=== PATIENT | female | born 2000 | race Hispanic/Latino ===

== ENCOUNTER 2021-11-27 17:27 | Emergency (ER) | payer MEDICAID ==
[2021-11-27 18:14] LABS: Bilirubin Neg (Negative); Blood, Urine Negative (Negative); Clarity Clear (Clear); Glucose, Urine (Dipstick) Normal (Negative); Ketone, Urine Negative (Negative); Leukocyte Negative (Negative); Nitrite Negative (Negative); Protein, Urine (Dipstick) Negative (Neg-Trace); Urobilinogen Normal mg/dL (Less than 2); pH, Urine 6.5 (5.0-9.0)
== END 2021-11-27 18:37 | disposition left against medical advice (07) ==
LOC: CSHERS 17:27
DX: Z53.21 Procedure and treatment not carried out due to patient leaving prior to being seen by health care provider (principal)
CPT/HCPCS: 81003

== ENCOUNTER 2021-12-01 18:05 | Emergency (ER) | payer MEDICAID, OTHER ==
[2021-12-01 18:45] LABS: #Basophils 0.1 10x3/uL (0.0-0.2); #Eosinphils 0.5 10x3/uL (0.0-0.5); #Monocytes 0.9 10x3/uL (0.0-1.1); #Neutrophils 3.6 10x3/uL (1.5-8.4); %Basophils 0.8 % (0.0-2.0); %Eosinophils 6.2 % (0.0-6.0); %Lymphocytes 33.7 % (18.0-47.0); %Monocytes 11.8 % (0.0-10.0); %Neutrophils 47.2 % (40.0-75.0); Hemoglobin 12.5 g/dL (12.0-15.5); Mean Corpuscular HGB CONC 33.1 g/dL (32.0-36.0); Mean Corpuscular Hemoglobin 30.6 pg (27.0-33.0); Mean Corpuscular Volume 92.4 fl (81.6-98.3); Mean Platelet Volume 12.2 fl (7.4-10.4); Platelet Count 172 10x3/uL (150-450); RBC Distribution Width 11.8 % (11.5-14.5); Red Blood Cell (RBC) Count 4.09 10x6/uL (3.90-5.03); White Blood Cell (WBC) Count 7.7 10x3/uL (3.5-10.5)
[2021-12-01 18:58] LABS: ALT (SGPT) 10 U/L (8-55); AST (SGOT) 17 U/L (5-34); Albumin 3.9 g/dL (3.5-5.0); Alkaline Phosphatase 75 U/L (40-100); Anion Gap 13 mmol/L (10-20); BUN (Urea Nitrogen) 9 mg/dL (7.0-18.7); Bilirubin, Total 0.3 mg/dL (0.2-1.2); Calc. Creatinine Clearance 0 mL/min (70-130); Carbon Dioxide 22 mmol/L (22-29); Chloride 107 mmol/L (98-107); Globulin 3.2 g/dL (2.4-3.5); Glucose 105 mg/dL (70-105); Potassium 3.9 mmol/L (3.5-5.1); Protein, Total 7.1 g/dL (6.0-8.3); Sodium 138 mmol/L (136-145)
== END 2021-12-01 20:39 | disposition home or self-care (01) ==
LOC: CSHERS 18:05
DX: O02.1 Missed abortion (principal)
CPT/HCPCS: 80053; 84702; 85025; 86900; 86901

== ENCOUNTER 2022-10-17 08:34 | Outpatient (CLI) | payer OTHER | END 2022-10-17 08:35 | disposition home or self-care (01) | LOC: CSHULT 08:34 | PROVIDERS: ATTEND Family Medicine | DX: Z34.81 Encounter for supervision of other normal pregnancy, first trimester (principal); Z3A.18 18 weeks gestation of pregnancy | CPT/HCPCS: 76805 ==

== ENCOUNTER 2023-03-05 16:44 | Inpatient (IN) | payer OTHER ==
[~2023-03-05 16:44] MED LIST: Bupivacaine/Epinephrine 0.25% 30 ML VIAL ONE; ePHEDrine Sulfate 50 MG/10 ML VIAL ONE
[2023-03-05] MEDS: Lactated Ringer's 1,000 ML IV SCH (17:21)
[2023-03-05 17:35] VITALS: BMI 32.2
[2023-03-05] MEDS ORDERED: Fentanyl 100 MCG/2 ML VIAL SLOW IVP PRN (17:50)
[2023-03-05] MEDS ORDERED: Ibuprofen 800 MG TAB PO PRN (17:50)
[2023-03-05] MEDS ORDERED: Diphenoxylate HCl/Atropine Tablet PO PRN (17:50)
[2023-03-05] MEDS ORDERED: Lidocaine 1% (PF) 30 ML VIAL SC PRN (17:50)
[2023-03-05] MEDS ORDERED: Acetaminophen 500 MG TAB PO PRN (17:50)
[2023-03-05] MEDS ORDERED: hydrALAZINE 20 MG/ML VIAL SLOW IVP PRN (17:50)
[2023-03-05] MEDS ORDERED: Promethazine HCl 25 MG/ML VIAL IM PRN (17:50)
[2023-03-05] MEDS ORDERED: Ondansetron PF 4 MG/2 ML Vial IVP PRN (17:50)
[2023-03-05] MEDS ORDERED: Misoprostol 200 MCG TAB PR PRN (17:50)
[2023-03-05] MEDS ORDERED: Tranexamic Acid 1,000 MG/10 ML VIAL IVP PRN (17:50)
[2023-03-05] MEDS ORDERED: HYDROcodone/Acetaminophen 5/325 mg Tablet PO PRN (17:50)
[2023-03-05] MEDS ORDERED: Carboprost 250 MCG/ML AMP IM PRN (17:50)
[2023-03-05] MEDS ORDERED: Butorphanol Tartrate 1 MG/ML VIAL SLOW IVP PRN (17:50)
[2023-03-05] MEDS ORDERED: Penicillin G Potassium 5 MILL.UNITS in Sodium Chloride 0.9% 100 ML IVPB SCH (18:00)
[2023-03-05] MEDS ORDERED: NS w/ Oxytocin 30 units 500 ML IV SCH ×3 (18:00)
[2023-03-05 18:05] LABS: Hemoglobin 11.4 g/dL (12.0-15.5); Mean Corpuscular HGB CONC 32.7 g/dL (32.0-36.0); Mean Corpuscular Hemoglobin 30.1 pg (27.0-33.0); Mean Corpuscular Volume 92.1 fl (81.6-98.3); Mean Platelet Volume 13.4 fl (7.4-10.4); Platelet Count 138 10x3/uL (150-450); RBC Distribution Width 13.9 % (11.5-14.5); Red Blood Cell (RBC) Count 3.79 10x6/uL (3.90-5.03); White Blood Cell (WBC) Count 12.4 10x3/uL (3.5-10.5)
[2023-03-05] MEDS ORDERED: Misoprostol 100 MCG TAB ONE (18:06)
[2023-03-05] MEDS ORDERED: Penicillin G Potassium 5 MILL.UNITS VIAL ONE (18:06)
[2023-03-05 18:13] LABS: ALT (SGPT) 7 U/L (8-55); AST (SGOT) 18 U/L (5-34); Albumin 3.2 g/dL (3.5-5.0); Alkaline Phosphatase 147 U/L (40-110); Anion Gap 12 mmol/L (10-20); BUN (Urea Nitrogen) 9 mg/dL (7.0-18.7); Bilirubin, Total 0.1 mg/dL (0.2-1.2); Calc. Creatinine Clearance 226 mL/min (70-130); Calcium 9.4 mg/dL (7.8-10.44); Carbon Dioxide 20 mmol/L (22-29); Chloride 105 mmol/L (98-107); Estimated GFR 128; Globulin 3.1 g/dL (2.4-3.5); Glucose 72 mg/dL (70-105); Potassium 3.9 mmol/L (3.5-5.1); Protein, Total 6.3 g/dL (6.0-8.3); Sodium 133 mmol/L (136-145)
[2023-03-05] MEDS: Misoprostol 100 MCG TAB VAG SCH ×2 (18:19→22:12)
[2023-03-05 18:22] LABS: Creatinine, Urine Less than 20.00 mg/dL (47-110); Protein, Urine Random Quant Less than 10 mg/dL (1-14)
[2023-03-05 18:31] LABS: HBSAg Index 0.12 S/CO (0-0.99); Hep B Surf Ag - L&D Non-Reactive S/CO (NonReactive)
[2023-03-05 18:32] LABS: Syphilis Antibody Nonreactive (Nonreactive); Syphilis Antibody Index 0.04 S/CO (<1.00 Non-Reactive)
[2023-03-05] MEDS: Penicillin G 2.5 MILL.units 2.5 MILL.UNITS in Premix Bag 1 BAG IVPB SCH (22:12)
[2023-03-06] MEDS: Misoprostol 100 MCG TAB VAG SCH ×2 (01:20→16:18)
[2023-03-06] MEDS: Penicillin G 2.5 MILL.units 2.5 MILL.UNITS in Premix Bag 1 BAG IVPB SCH ×4 (02:05→16:19)
[2023-03-06] MEDS: Lactated Ringer's 1,000 ML IV SCH ×2 (02:47→07:31)
[2023-03-06] MEDS ORDERED: Fentanyl 2 mcg/Bup 0.1% Cadd 100 ML ONE (05:51)
[2023-03-06] MEDS ORDERED: Moisturizing Cream (Eucerin) 113 GM JAR TOP PRN (07:18)
[2023-03-06] MEDS ORDERED: Promethazine HCl 25 MG/ML VIAL IM PRN ×2 (07:18→16:11)
[2023-03-06] MEDS ORDERED: Ondansetron PF 4 MG/2 ML Vial IVP PRN ×2 (07:18→16:11)
[2023-03-06] MEDS ORDERED: Lactated Ringer's 500 ML IV PRN (07:18)
[2023-03-06] MEDS ORDERED: Acetaminophen 325 MG TAB PO PRN (07:18)
[2023-03-06] MEDS ORDERED: ePHEDrine Sulfate 50 MG/10 ML VIAL SLOW IVP PRN (07:18)
[2023-03-06] MEDS ORDERED: diphenhydrAMINE 50 MG/ML VIAL IVP PRN (07:18)
[2023-03-06] MEDS ORDERED: Naloxone HCl 0.4 mg/ml Vial IVP PRN ×2 (07:18)
[2023-03-06] MEDS ORDERED: Fentanyl 2 mcg/Bupivacaine 0.1% Cassette 100 ML EPIDURAL SCH (07:30)
[2023-03-06] MEDS ORDERED: Communication Order-Pharmacy FS SCH (07:30)
[2023-03-06] MEDS ORDERED: Boostrix 0.5 ML (Tdap) VIAL (>/=7 yrs of age) IM ONE (16:11)
[2023-03-06] MEDS ORDERED: HYDROcodone/Acetaminophen 5/325 mg Tablet PO PRN (16:11)
[2023-03-06] MEDS ORDERED: Preparation H Ointment 28 GM TUBE PR PRN (16:11)
[2023-03-06] MEDS ORDERED: diphenhydrAMINE 25 MG CAP PO PRN (16:11)
[2023-03-06] MEDS ORDERED: Benzocaine-Menthol 82.5 ML CAN TOP PRN (16:11)
[2023-03-06] MEDS ORDERED: Lanolin Ointment 7 GM TUBE TOP PRN (16:11)
[2023-03-06] MEDS ORDERED: hydrALAZINE 20 MG/ML VIAL SLOW IVP PRN (16:11)
[2023-03-06] MEDS ORDERED: cloNIDine 0.1 MG TAB PO PRN (16:11)
[2023-03-06] MEDS ORDERED: Bisacodyl 10 MG SUPP PR PRN (16:11)
[2023-03-06] MEDS ORDERED: Milk Of Magnesia 30 ML UDCUP PO PRN (16:11)
[2023-03-06] MEDS: Ferrous Sulfate 325 MG TAB PO SCH (16:18)
[2023-03-06] MEDS: Docusate 100 MG CAP PO SCH (20:19)
[2023-03-06] MEDS: HYDROcodone/Acetaminophen 5/325 mg Tablet PO PRN (20:19)
[2023-03-06] MEDS: Ibuprofen 800 MG TAB PO SCH (20:20)
[2023-03-07] MEDS: Ibuprofen 800 MG TAB PO SCH ×3 (04:46→22:05)
[2023-03-07] MEDS: Ferrous Sulfate 325 MG TAB PO SCH ×2 (07:35→19:03)
[2023-03-07] MEDS: Docusate 100 MG CAP PO SCH ×2 (08:57→22:05)
[2023-03-07] MEDS: HYDROcodone/Acetaminophen 5/325 mg Tablet PO PRN (08:57)
[2023-03-07] MEDS: Prenatal Vitamin 1 TAB PO SCH (08:57)
[2023-03-08] MEDS: Ibuprofen 800 MG TAB PO SCH ×2 (05:55→13:15)
[2023-03-08] MEDS ORDERED: Misoprostol 200 MCG TAB PO SCH (06:00)
[2023-03-08 08:06] VITALS: BP 117/68; TEMP 98.6
[2023-03-08] MEDS: Ferrous Sulfate 325 MG TAB PO SCH (08:53)
[2023-03-08] MEDS: Prenatal Vitamin 1 TAB PO SCH (09:24)
[2023-03-08] MEDS: Docusate 100 MG CAP PO SCH (09:24)
== END 2023-03-08 17:45 | disposition home or self-care (01) | DRG 807 ==
LOC: CSHLD 16:44 → CSHPP 03-06 15:50
PROVIDERS: ADMIT Family Medicine; ATTEND Family Medicine
PROC: 10E0XZZ Delivery of Products of Conception, External Approach (ICD-10-PCS; principal; 2023-03-06)
PROC: 0KQM0ZZ Repair Perineum Muscle, Open Approach (ICD-10-PCS; 2023-03-06)
PROC: 3E0P7VZ Introduction of Hormone into Female Reproductive, Via Natural or Artificial Opening (ICD-10-PCS; 2023-03-06)
DX: O10.92 Unspecified pre-existing hypertension complicating childbirth (principal); Z37.0 Single live birth; Z3A.39 39 weeks gestation of pregnancy; O99.824 Streptococcus B carrier state complicating childbirth; F41.9 Anxiety disorder, unspecified; O99.344 Other mental disorders complicating childbirth; Z79.899 Other long term (current) drug therapy; O70.1 Second degree perineal laceration during delivery; O69.81X0 Labor and delivery complicated by cord around neck, without compression, not applicable or unspecified
CPT/HCPCS: 51702; 80053; 82570; 84156; 85027; 86780; 86850; 86900; 86901; 87340; J2540; J2590; J3490; J7120

== ENCOUNTER 2023-11-22 13:09 | Outpatient (CLI) | payer OTHER | END 2023-11-22 13:10 | disposition home or self-care (01) | LOC: CSHULT 13:09 | PROVIDERS: ATTEND Nurse Practitioner Women's Health | DX: Z34.82 Encounter for supervision of other normal pregnancy, second trimester (principal) | CPT/HCPCS: 76805 ==

== ENCOUNTER 2024-04-02 05:30 | Inpatient (IN) | payer MEDICAID, OTHER ==
[2024-04-02] MEDS ORDERED: Lidocaine 1% (PF) 30 ML VIAL SC PRN (06:38)
[2024-04-02] MEDS ORDERED: Misoprostol 200 MCG TAB PR PRN (06:38)
[2024-04-02] MEDS ORDERED: Oxytocin 30 units/NS 500 ML 500 ML IV SCH ×2 (06:38)
[2024-04-02] MEDS: Lactated Ringer's 1,000 ML IV SCH (06:38)
[2024-04-02] MEDS ORDERED: Promethazine HCl 25 MG/ML VIAL IM PRN ×3 (06:38→20:24)
[2024-04-02] MEDS ORDERED: Diphenoxylate HCl/Atropine Tablet PO PRN (06:38)
[2024-04-02] MEDS ORDERED: Tranexamic Acid 1,000 MG/10 ML VIAL IVP PRN (06:38)
[2024-04-02] MEDS ORDERED: Carboprost 250 MCG/ML AMP IM PRN (06:38)
[2024-04-02] MEDS ORDERED: hydrALAZINE 20 MG/ML VIAL SLOW IVP PRN ×2 (06:38→20:24)
[2024-04-02] MEDS ORDERED: Methylergonovine 0.2 MG/ML VIAL IM PRN (06:38)
[2024-04-02] MEDS ORDERED: HYDROcodone/Acetaminophen 5/325 mg Tablet PO PRN (06:38)
[2024-04-02] MEDS ORDERED: fentaNYL 50 mcg/mL 1 mL Vial SLOW IVP PRN (06:38)
[2024-04-02 06:56] VITALS: BMI 29.4
[2024-04-02 07:05] LABS: Hematocrit 32.6 % (34.9-44.5); Mean Corpuscular HGB CONC 33.7 g/dL (32.0-36.0); Mean Corpuscular Volume 91.8 fl (81.6-98.3); Mean Platelet Volume 12.9 fl (7.4-10.4); Platelet Count 121 10x3/uL (150-450); RBC Distribution Width 13.2 % (11.5-14.5); Red Blood Cell (RBC) Count 3.55 10x6/uL (3.90-5.03)
[2024-04-02] MEDS: Oxytocin 30 units/NS 500 ML 500 ML ONE (07:33)
[2024-04-02] MEDS: Oxytocin 30 units/NS 500 ML 500 ML IV SCH (07:33)
[2024-04-02 07:44] LABS: HBsAg Index 0.19 S/CO (0-0.99); Hep B Surf Ag - L&D Non-Reactive S/CO (NonReactive)
[2024-04-02 07:45] LABS: Syphilis Antibody Nonreactive (Nonreactive); Syphilis Antibody Index 0.05 S/CO (<1.00 Non-Reactive)
[2024-04-02] MEDS: Acetaminophen 500 MG TAB PO PRN (08:35)
[2024-04-02] MEDS: fentaNYL/Ropivacaine Epidural 100 ML ONE (11:06)
[2024-04-02] MEDS: Ondansetron PF 4 MG/2 ML Vial IVP PRN (11:45)
[2024-04-02] MEDS: Magnesium Sulfate 20 gm/500 ml 20 GM/500 ML BAG ONE (13:02)
[2024-04-02] MEDS ORDERED: diphenhydrAMINE 50 MG/ML VIAL IVP PRN (13:37)
[2024-04-02] MEDS ORDERED: Moisturizing Cream (Eucerin) 113 GM JAR TOP PRN (13:37)
[2024-04-02] MEDS ORDERED: ePHEDrine Sulfate 50 MG/10 ML VIAL SLOW IVP PRN (13:37)
[2024-04-02] MEDS ORDERED: Ondansetron PF 4 MG/2 ML Vial IVP PRN ×2 (13:37→20:24)
[2024-04-02] MEDS ORDERED: Lactated Ringer's 500 ML IV PRN (13:37)
[2024-04-02] MEDS ORDERED: Naloxone HCl 0.4 mg/ml Vial IVP PRN ×2 (13:37)
[2024-04-02] MEDS ORDERED: Acetaminophen 325 MG TAB PO PRN (13:37)
[2024-04-02] MEDS ORDERED: Communication Order-Pharmacy FS SCH (13:45)
[2024-04-02] MEDS ORDERED: fentaNYL 2 mcg/Ropivacaine 0.2% Epidural 100 ML CADD EPIDURAL SCH (13:45)
[2024-04-02] MEDS: Ibuprofen 800 MG TAB PO PRN (18:48)
[2024-04-02] MEDS ORDERED: diphenhydrAMINE 25 MG CAP PO PRN (20:24)
[2024-04-02] MEDS ORDERED: Milk Of Magnesia 30 ML UDCUP PO PRN (20:24)
[2024-04-02] MEDS ORDERED: Lanolin Ointment 7 GM TUBE TOP PRN (20:24)
[2024-04-02] MEDS ORDERED: Bisacodyl 10 MG SUPP PR PRN (20:24)
[2024-04-02] MEDS ORDERED: Boostrix 0.5 ML (Tdap) VIAL (>/=7 yrs of age) IM ONE (20:24)
[2024-04-02] MEDS: HYDROcodone/Acetaminophen 5/325 mg Tablet PO PRN (20:46)
[2024-04-02] MEDS: Docusate 100 MG CAP PO SCH (20:46)
[2024-04-03] MEDS: Ibuprofen 800 MG TAB PO SCH ×2 (05:19→13:24)
[2024-04-03] MEDS: Prenatal Vitamin 1 TAB PO SCH (07:36)
[2024-04-03] MEDS: Ferrous Sulfate 325 MG TAB PO SCH (13:26)
[2024-04-03] MEDS ORDERED: Bupivacaine/Epinephrine 0.25% 30 ML VIAL ONE (16:06)
[2024-04-03] MEDS: Benzocaine-Menthol 82.5 ML CAN TOP PRN (19:03)
[2024-04-04 17:53] VITALS: BP 120/69; TEMP 98
== END 2024-04-04 15:40 | disposition home or self-care (01) | DRG 807 ==
LOC: CSHLD 05:34 → CSHPP 20:08
PROVIDERS: ADMIT Family Medicine; ATTEND Family Medicine
PROC: 10907ZC Drainage of Amniotic Fluid, Therapeutic from Products of Conception, Via Natural or Artificial Opening (ICD-10-PCS; principal; 2024-04-02)
PROC: 10E0XZZ Delivery of Products of Conception, External Approach (ICD-10-PCS; 2024-04-02)
PROC: 0KQM0ZZ Repair Perineum Muscle, Open Approach (ICD-10-PCS; 2024-04-02)
DX: O48.0 Post-term pregnancy (principal); Z37.0 Single live birth; Z3A.40 40 weeks gestation of pregnancy; Z79.82 Long term (current) use of aspirin; O70.1 Second degree perineal laceration during delivery
CPT/HCPCS: 85027; 86780; 86850; 86900; 86901; 87340; J2405; J2590; J7120

== ENCOUNTER 2024-08-05 22:03 | Emergency (ER) | payer MEDICAID, OTHER, SELFPAY | END 2024-08-05 22:37 | disposition home or self-care (01) | LOC: CSHERS 22:03 | DX: L08.89 Other specified local infections of the skin and subcutaneous tissue (principal) | CPT/HCPCS: 99283 ==